=== PATIENT | female | born 1965 | race Caucasian/White ===

== ENCOUNTER 2024-06-24 14:01 | Emergency (ER) | payer BC, SELFPAY ==
[2024-06-24 14:11] VITALS: BP 138/78
[2024-06-24 14:29] LABS: % Basophils 1.5 % (0-2); % Eosinophils 5.1 % (0-6); % Immature Granulocytes 0.3 % (0-0.5); % Lymphocytes 36.7 % (20.5-51.1); % Neutrophils 46.4 % (42.2-75.2); Absolute Basophils 0.1 10^3/uL (0-0.2); Absolute Eosinophils 0.4 10^3/uL (0-0.7); Absolute Lymphocytes 2.9 10^3/uL (1.2-3.4); Absolute Monocytes 0.8 10^3/uL (0.1-0.6); Absolute Neutrophils 3.7 10^3/uL (1.4-6.5); Hemoglobin 13.8 g/dL (12.0-16.0); Mean Corp Hgb Conc. 33.7 g/dL (33.0-37.0); Mean Corpuscular Hgb 29.8 pg (27.0-31.0); Mean Corpuscular Volume 88.6 fL (81.0-99.0); Mean Platelet Volume 8.7 fL (7.4-10.4); Nucleated Red Blood Cells % 0 %; Platelet Count 353 10^3/uL (130-400); Red Blood Cell Count 4.63 10^6/uL (4.20-5.40); Red Cell Dist. Width 13.2 % (11.5-14.5)
[2024-06-24 14:49] LABS: ALT (SGPT) 17 U/L (0-35); AST (SGOT) 23 U/L (14-36); Albumin 4.5 g/dl (3.5-5.0); Alkaline Phosphatase 108 U/L (38-126); Blood Urea Nitrogen 25 mg/dl (7-17); Calcium 9.1 mg/dl (8.4-10.2); Carbon Dioxide 24 mmol/L (22-30); Chloride 104 mmol/L (98-107); Glucose 144 mg/dl (70-99); Potassium 4.1 mmol/L (3.5-5.1); Sodium 138 mmol/L (135-145); Total Bilirubin 0.3 mg/dl (0.2-1.3); Total Protein 8.1 g/dl (6.3-8.2); eGFR > 60.00
--- NOTE | 2024-06-24 17:02 | ED.GENMED ---
History of Present Illness
General
Chief Complaint: Cold/Flu/URI Symptoms
Source: patient
Exam Limitations: none
Time Seen by Provider: 06/24/24 16:29
Nursing documentation reviewed up to this point in time: agreed with
History of Present Illness
History of Present Illness:
58 you female w h/o Ulcerative Colitis, hypothyroid presents [facility] for tingling feeling left side of face and head. States she's had sinus 'infection' for past month affecting only the left side of her face and head. Was treated with
antibiotics with no improvement. States her left lung is 'heavier than my right lung.' Had neg CXR at [facility] and this is scanned into this chart.
Pt has appointment with her ENT Dr. Marques in one week.
Denies fever/chills/N/V/D/C.
Past History
Past History
ED Past Medical History: Hypothyroidism and Other (Ulcerative Colitis)
ED Past Surgical History: Gynecological
Social History
Tobacco: Non-smoker
Personal: (boyfriend)
Living: with roommate
Employment: Not employed
Review of Systems
Review of Systems
Allergies reviewed?: Yes
All Other Systems: ROS reviewed and negative except as documented in HPI and ROS
Constitutional: Denies fever
EENT: Reports other (left sinus pressure); Denies sore throat
Respiratory: Reports other ('my left lung feels heavier than my right lung' ); Denies cough or trouble breathing
Cardiac: Reports no symptoms
ABD/GI: Denies abdominal pain, nausea or vomiting
: Denies dysuria, frequency or difficulty voiding
Musculoskeletal: Reports no symptoms
Skin: Reports no symptoms
Neurological: Denies dizzy, headache (Intermittent tingling left side of head and face), weakness or numbness
Phy Exam
Physical Exam
Physical Exam:
GENERAL: No acute distress. A&Ox3.
CONSTITUTIONAL: Afebrile.
Head: NC/AT, no tenderness temporal areas
EYES: clear, conjunctivae normal
ENMT: moist mucus membranes, Pharynx nl, TMs normal, full ROM of jaw, non tender over maxillary and frontal sinuses, no facial swelling
RESPIRATORY: Regular respirations, nonlabored, lungs clear.
CARDIOVASCULAR: Regular rate and rhythm, no murmurs, no rubs.
GI: Soft, nontender, normal BS
MUSCULOSKELETAL: Moves with ease. Well perfused.
SKIN: Warm, dry, pink
PSYCH: Normal mood and affect. Well kept, interactive and appropriate
NEUROLOGIC: Awake, alert and oriented. Face symmetrical. No focal neurological deficits.Ambulates with steady gait
Course
Orders/Labs/Results
Orders:
Orders
06/24/24 14:22
Complete Blood Count/With Diff Urgent
Comprehensive Metabolic Panel Urgent
06/24/24 16:55
CT Sinuses W/o Iv Contrast Urgent
Comment:
Reason For Exam: pain left side face, sinus infect 1 month
06/24/24 16:57
CT Head W/o Iv Contrast Urgent
Comment:
Reason For Exam: tingling/pressure left side head
Abnormal Lab Results
06/24/24
14:22
Absolute Monos (auto) 0.8 H 10^3/uL
(0.1-0.6)
Monocytes % 10.0 H %
(1.7-9.3)
BUN 25 H mg/dl
(7-17)
Glucose 144 H mg/dl
(70-99)
06/24/24 14:22
06/24/24 14:22
Vital Signs
Initial and Last Documented VS:
Initial Vital Signs
Temp Pulse Resp BP Pulse Ox
98.2 F 83 18 138/78 96
06/24/24 14:11 06/24/24 14:11 06/24/24 14:11 06/24/24 14:11 06/24/24 14:11
Last Documented Vital Signs
Temp Pulse Resp BP Pulse Ox
98.2 F 82 18 118/82 98
06/24/24 14:11 06/24/24 19:22 06/24/24 19:22 06/24/24 19:22 06/24/24 19:22
MDM/Problems Addressed
Differential Diagnosis Includes:
sinusitis, polyp
Cephalgia, migraine
MDM/Problems Addressed:
58 you female w h/o Ulcerative Colitis, hypothyroid presents from [facility] for tingling feeling left side of face and head. States she's had sinus 'infection' for past month affecting only the left side of her face and head. Was treated with
antibiotics with no improvement. States her left lung is 'heavier than my right lung.' Had neg CXR at [facility] and this is scanned into this chart.
Pt has appointment with her ENT Dr. Marques in one week.
Denies fever/chills/N/V/D/C.
Afebrile, NAD
Normal neuro exam, no risk factors for stroke, do not suspect central neuro pathology
CBC normal
CMP with no clinically significant abnormality
6:30 PM:
Patient informed that there are still 3 people ahead of her for CAT scan. She is sitting in her room with her and they are sharing a pizza. She was appreciative of the information.
7:15 PM:
CT sinuses radiology report read: IMPRESSION:
Mild nonacute left maxillary sinusitis.
Postsurgical change.
Mild left nasal septal deviation
CT head radiology report read: No acute finding.
Copy of report given to patient
She has ENT appt. next Thursday.
*Critical Care Note
Total Time (30-74mins, 75-104mins- exclusive of procedures): Not Applicable
ED Attending Note
-
Portions of this chart may have been created with voice recognition software.� Occasional wrong word or��sound alike� substitutions may have occurred due to the inherent limitations of voice recognition software.
Discharge Plan
Departure
Patient Disposition: Home (Routine Discharge)
Date of Disposition: 06/24/24
Time of Disposition: 19:11
Patient with high blood pressure during this ER visit?: No
Condition: Good
Discharge Problem:
Mild left nonacute sinusitis
Referrals:
Bridget Bright, [Family Provider] -
Activity Restrictions/Additional Instructions:
As we discussed in your CAT scans show, your head CT was normal, your sinus CT shows mild nonacute sinusitis.
Your chest x-ray is normal
Interventions
Interventions:
*Risk Screen - Suicide Last Done: 06/24/24 14:11
*General Assessment Last Done: 06/24/24 14:11
*Neglect/Abuse Screening Last Done: 06/24/24 14:11
*ED COVID-19 Vaccine History Last Done: 06/24/24 17:13
*Nursing Disposition Last Done: 06/24/24 19:22
ED- Pulmonary Assessment Last Done: 06/24/24 17:13
Discharge Date and Time
Discharge Date/Time: 06/24/24 19:23
Print Language: GERMAN
[2024-06-24 17:12] VITALS: BP 116/78
[2024-06-24 19:22] VITALS: BP 118/82
== END 2024-06-24 19:23 | disposition home or self-care (01) ==
LOC: EMR 14:01
PROVIDERS: Emergency Medicine; EMERGENCY PHYSICIAN Emergency Medicine; FAMILY PHYSICIAN Family Medicine
DX: J32.8 Other chronic sinusitis (principal); E03.9 Hypothyroidism, unspecified
CPT/HCPCS: 99284; 70450; 70486; 80053; 85025